=== PATIENT | male | born 1960 | race Caucasian/White ===

== ENCOUNTER → 2021-04-13 | Day surgery (SDC) | payer OTHER ==
[~2021-04-13] MED LIST: Bupivacaine 0.5% 30 ML SDV ONE; Lactated Ringers 1,000 ML IV SCH; Lidocaine 1%/Sod Bicarbonate in NS 8.4% 1 ML Syringe IDERM PRN; Sodium Chloride 0.9% 10 ML Syringe FLUSH PRN
== END | disposition home or self-care (01) ==
LOC: JD.SDS 07:50
PROVIDERS: ATTEND Surgery
DX: Z53.9 Procedure and treatment not carried out, unspecified reason (principal)
CPT/HCPCS: J3490

== ENCOUNTER 2022-06-21 06:17 | Day surgery (SDC) | payer OTHER ==
[~2022-06-21 06:17] MED LIST changes: +Bupivacaine 0.25% 10 ML SDV ONE; -Bupivacaine 0.5% 30 ML SDV ONE; +Dexamethasone 4 MG/ML 5 ML MDV ONE; +EPINEPHrine 1 MG/ML SDV ONE; +Ketamine 500 mg/10 ML MDV ONE; +Ketorolac 30 MG/ML SDV ONE; +Lactated Ringers 1,000 ML ONE; +Midazolam 1 MG/ML 2 ML SDV ONE; +Morphine 8 MG, EPINEPHrine 0.3 MG, Cefuroxime 750 MG, Ketorolac 30 MG, Sodium Chloride ... PRN; +Ondansetron 4 MG/2 ML SDV ONE; +Propofol 200 MG/20 ML SDV ONE; +Ropivacaine 0.5% 5 MG/ML 30 ML SDV ONE; +Sodium Chloride 0.9% 10 ML Syringe FLUSH SCH; +Tranexamic Acid 1,000 MG/10 ML Vial ONE; +Triamcinolone Acetonide 40 MG/ML 1 ML SDV ONE; +Vancomycin 1 GM SDV ONE; +ceFAZolin 1 GM Vial ONE; +ceFAZolin 2 GM Vial ONE; +fentaNYL 100 MCG/2 ML SDV ONE
[2022-06-21] MEDS ORDERED: oxyCODONE ER 10 MG TAB.ER PO ONE (06:25)
[2022-06-21] MEDS ORDERED: Pregabalin 25 MG Cap PO STA (06:26)
[2022-06-21] MEDS ORDERED: Acetaminophen 325 MG Tab PO ONE (06:26)
[2022-06-21] MEDS ORDERED: ePHEDrine 50 MG/ML SDV ONE (06:52)
[2022-06-21] MEDS ORDERED: Vasopressin 20 UNIT/ML 10 ML MDV ONE (06:54)
[2022-06-21] MEDS ORDERED: Lidocaine 1% 2 ML ONE (07:31)
[2022-06-21] MEDS ORDERED: Phenylephrine HCl In 0.9% NaCl 1 MG/10 ML Vial ONE (07:38)
[2022-06-21] MEDS ORDERED: HYDROmorphone 0.5 MG/0.5 ML Syringe IVPUSH PRN (07:57)
[2022-06-21] MEDS ORDERED: Phenylephrine HCl In 0.9% NaCl 1 MG/10 ML Vial IVPUSH PRN (07:57)
[2022-06-21] MEDS ORDERED: fentaNYL 100 MCG/2 ML SDV IVPUSH PRN (07:57)
[2022-06-21] MEDS ORDERED: diphenhydrAMINE 50 MG/ML SDV IVPUSH PRN (07:57)
[2022-06-21] MEDS ORDERED: Albuterol 0.083% 2.5 MG/3 ML Neb Soln NEB PRN (07:57)
[2022-06-21] MEDS ORDERED: Ondansetron 4 MG/2 ML SDV IVPUSH PRN (07:57)
[2022-06-21] MEDS ORDERED: ePHEDrine 50 MG/ML SDV IVPUSH PRN (07:57)
[2022-06-21] MEDS ORDERED: Propofol 200 MG/20 ML SDV ONE (08:14)
[2022-06-21] MEDS ORDERED: oxyCODONE 5 MG Tab PO SCH (08:45)
[2022-07-01] MEDS ORDERED: Morphine 8 MG, EPINEPHrine 0.3 MG, Cefuroxime 750 MG, Ketorolac 30 MG, Sodium Chloride ... PRN ×5 (06:00)
== END 2022-06-21 13:40 | disposition home or self-care (01) ==
LOC: JD.SDS 06:17
PROVIDERS: ATTEND Orthopaedic Surgery
DX: M17.0 Bilateral primary osteoarthritis of knee (principal); I10 Essential (primary) hypertension; G47.33 Obstructive sleep apnea (adult) (pediatric); E78.5 Hyperlipidemia, unspecified; Z79.899 Other long term (current) drug therapy; Z98.890 Other specified postprocedural states; Z79.82 Long term (current) use of aspirin; Z95.5 Presence of coronary angioplasty implant and graft
CPT/HCPCS: 0055T; 20610; 27447; 64447; 73560; 97110; 97116; 97161; A9270; C1713; C1776; J0171; J0690; J0697; J1100; J1885; J2250; J2270; J2405; J2704; J2795; J3010; J3301; J3370; J3490; J7120; 01402; 64450; 76942

== ENCOUNTER 2023-06-07 19:01 | Emergency (ER) | payer SELFPAY ==
[2023-06-07] MEDS ORDERED: Sodium Chloride 0.9% 10 ML Syringe FLUSH ONE (20:08)
[2023-06-07] MEDS ORDERED: Iopamidol 612 MG/ML 100 ML Bottle IVPUSH ONE (20:08)
[2023-06-07 21:15] LABS: BASOPHILS ABSOLUTE AUTO 0.1 K/mm3 (0.0-0.2); EOSINOPHILS ABSOLUTE AUTO 0.5 K/mm3 (0.0-0.4); EOSINOPHILS PERCENT AUTO 4.6 % (0.0-6.0); HEMOGLOBIN 14.8 gm/dl (14.0-18.0); IMMATURE GRAN ABSOLUTE AUTO 0.16 K/mm3 (0.00-0.05); IMMATURE GRAN PERCENT AUTO 1.6 % (0.0-0.4); LYMPHOCYTES ABSOLUTE AUTO 1.4 K/mm3 (1.0-4.8); MEAN CORPUSCULAR HEMOGLOBIN 28.4 pg (28.0-32.0); MEAN CORPUSCULAR HGB CONC 32.9 g/dl (32.0-36.0); MEAN CORPUSCULAR VOLUME 86.4 fl (83.0-99.0); MEAN PLATELET VOLUME 8.9 fl (9.4-12.4); MONOCYTES ABSOLUTE AUTO 1.1 K/mm3 (0.0-0.8); MONOCYTES PERCENT AUTO 10.9 % (0.0-8.0); NEUTROPHILS PERCENT AUTO 67.9 % (41.0-71.0); PLATELET COUNT,PLT 343 K/mm3 (150-400); RED BLOOD CELL COUNT 5.21 M/mm3 (4.52-5.90); WHITE BLOOD CELL COUNT,WBC 10.26 K/mm3 (3.9-11.3)
[2023-06-07 21:48] LABS: A/G RATIO 0.8 (1-2); ALBUMIN 3.7 g/dl (3.4-5.0); ANION GAP 12.1 (5-15); BILIRUBIN TOTAL 0.8 mg/dL (0.2-1.0); EST CRCL DRUG DOSING (CG) 76.04 mL/min; POTASSIUM,K 4.1 mEq/L (3.5-5.1); PROTEIN TOTAL,TP 8.3 g/dl (6.4-8.2)
[2023-06-07] MEDS ORDERED: cefTRIAXone 1 GM in Sodium Chloride 0.9% 100 ML IV ONE (23:48)
== END 2023-06-08 01:30 | disposition home or self-care (01) ==
LOC: JD.ED 19:01
DX: N48.21 Abscess of corpus cavernosum and penis (principal); M79.9 Soft tissue disorder, unspecified; Z79.899 Other long term (current) drug therapy; Z79.2 Long term (current) use of antibiotics; L02.91 Cutaneous abscess, unspecified
CPT/HCPCS: 72193; 80053; 85025; 86140; 96365; 99283; J0696; J3490; Q9967; 99284

== ENCOUNTER 2024-04-11 13:04 | Day surgery (SDC) | payer MEDICARE, OTHER ==
[~2024-04-11 13:04] MED LIST changes: -Bupivacaine 0.25% 10 ML SDV ONE; -Dexamethasone 4 MG/ML 5 ML MDV ONE; -EPINEPHrine 1 MG/ML SDV ONE; +HYDROmorphone 0.5 MG/0.5 ML Syringe IVPUSH PRN; -Ketamine 500 mg/10 ML MDV ONE; -Ketorolac 30 MG/ML SDV ONE; -Lactated Ringers 1,000 ML ONE; -Lidocaine 1%/Sod Bicarbonate in NS 8.4% 1 ML Syringe IDERM PRN; -Midazolam 1 MG/ML 2 ML SDV ONE; -Morphine 8 MG, EPINEPHrine 0.3 MG, Cefuroxime 750 MG, Ketorolac 30 MG, Sodium Chloride ... PRN; +Ondansetron 4 MG/2 ML SDV IVPUSH PRN; -Ondansetron 4 MG/2 ML SDV ONE; -Propofol 200 MG/20 ML SDV ONE; -Ropivacaine 0.5% 5 MG/ML 30 ML SDV ONE; -Tranexamic Acid 1,000 MG/10 ML Vial ONE; -Triamcinolone Acetonide 40 MG/ML 1 ML SDV ONE; -Vancomycin 1 GM SDV ONE; -ceFAZolin 1 GM Vial ONE; -ceFAZolin 2 GM Vial ONE; +fentaNYL 100 MCG/2 ML SDV IVPUSH PRN; -fentaNYL 100 MCG/2 ML SDV ONE
[2024-04-11] MEDS ORDERED: Midazolam 1 MG/ML 2 ML SDV ONE (13:25)
[2024-04-11] MEDS ORDERED: fentaNYL 250 MCG/5 ML SDV ONE (13:25)
[2024-04-11] MEDS ORDERED: Propofol 200 MG/20 ML SDV ONE (13:25)
[2024-04-11] MEDS ORDERED: Dexamethasone 4 MG/ML 5 ML MDV ONE (13:28)
[2024-04-11] MEDS ORDERED: Rocuronium 50 MG/5 ML Vial ONE ×2 (13:28→14:09)
[2024-04-11] MEDS ORDERED: Ketorolac 30 MG/ML SDV ONE (13:28)
[2024-04-11] MEDS ORDERED: Lidocaine 1% 5 ML VIAL ONE ×3 (13:28)
[2024-04-11] MEDS ORDERED: dexmedeTOMIDine HCl 200 MCG/2 ML SDV ONE (13:28)
[2024-04-11] MEDS: Lactated Ringers 1,000 ML IV SCH (13:45)
[2024-04-11] MEDS ORDERED: ceFAZolin 2 GM Vial ONE ×3 (13:47)
[2024-04-11] MEDS: Acetaminophen 325 MG Tab PO ONE (13:57)
[2024-04-11] MEDS: Gabapentin 300 MG Cap PO ONE (13:57)
[2024-04-11] MEDS ORDERED: Sugammadex Sodium 200 MG/2 ML VIAL IV ONE ×4 (15:14→15:24)
[2024-04-11] MEDS: Lidocaine 1% 30 ML SDV ONE (15:20)
[2024-04-11] MEDS: EPINEPHrine 1 MG/ML SDV ONE (15:20)
[2024-04-11] MEDS: Bupivacaine 0.5% 30 ML SDV ONE (15:20)
[2024-04-11] MEDS ORDERED: Lactated Ringers 1,000 ML IV ONE (15:30)
[2024-04-11] MEDS: Acetaminophen/oxyCODONE 325-5 MG Tab PO ONE (19:20)
[2024-04-11] MEDS: Acetaminophen/oxyCODONE 325-5 MG Tab ONE (19:31)
== END 2024-04-11 19:30 | disposition home or self-care (01) ==
LOC: JD.SDS 13:04
PROVIDERS: ATTEND Surgery
DX: K42.0 Umbilical hernia with obstruction, without gangrene (principal); I10 Essential (primary) hypertension; E66.9 Obesity, unspecified; Z79.899 Other long term (current) drug therapy; Z68.38 Body mass index [BMI] 38.0-38.9, adult
CPT/HCPCS: A9270-GY; J0171; J0665; J0690; J1100; J1885; J2250; J2704; J3010; J3490; J7120

== ENCOUNTER 2024-10-28 20:00 | Emergency (ER) | payer MEDICARE, OTHER ==
[2024-10-28] MEDS: Lidocaine 1% 10 ML MDV INJECT ONE (20:45)
[2024-10-28] MEDS: Diphtheria,Pertussis(Acell),Tetanus Vaccine 0.5 ML Syringe IM ONE (21:33)
[2024-10-28] MEDS: Cephalexin 500 MG Cap PO ONE (21:37)
== END 2024-10-28 21:41 | disposition home or self-care (01) ==
LOC: JD.ED 20:00
DX: S61.210A Laceration without foreign body of right index finger without damage to nail, initial encounter (principal); I10 Essential (primary) hypertension; Z79.899 Other long term (current) drug therapy; Z23 Encounter for immunization; Z86.16 Personal history of COVID-19; W26.0XXA Contact with knife, initial encounter; Y93.89 Activity, other specified
CPT/HCPCS: 12002; 90471; 90715; 99282; A9270; J2003; 99283